=== PATIENT | female | born 2005 | race Caucasian/White ===

== ENCOUNTER 2024-11-30 13:09 | Emergency (ER) | payer OTHER, SELFPAY ==
[2024-11-30 13:17] VITALS: BP 138/95; PULSE 78; TEMP 36.7; O2SAT 98; BMI 36.0
[2024-11-30 13:27] VITALS: O2SAT 99
--- NOTE | 2024-11-30 13:51 | ED.GENADUL1 ---
HPI HPI - General Adult General Chief complaint: Extremity Problem, Nontraumatic Stated complaint: POST OP COMPLICATIONS Time Seen by Provider: 11/30/24 13:20 Source: patient Mode of arrival: walk-in History of Present Illness HPI narrative: pt had tonsillectomy 5 days ago at [facility] near [place]. She presents with throat pain - no relief with the liquid oxy that was prescribed. She is also taking oral tylenol. No fever or chills. No bleeding. Related Data Allergies Allergy/AdvReac Type Severity Reaction Status Date / Time latex Allergy Severe Rash Verified 11/30/24 13:22 Penicillins Allergy Severe Rash Verified 11/30/24 13:22 Opioid HPI Opioid Management Most Recent Opioid Data: No Data to Display PFSH PFSH Social History Little interest or pleasure in doing things: not at all Feeling down, depressed, or hopeless: not at all Exam Narrative Exam Narrative: Nurses notes and vital signs reviewed and patient is not hypoxic. afebrile General: Well-appearing and in no apparent distress. Skin: Warm, dry, no pallor noted. Head: Normocephalic, atraumatic. Neck: Supple, non-tender. No cervical lymphadenopathy Eye: Pupils are equal, round and EOMI. No scleral icterus. Ears, Nose, Mouth, and Throat: TM are clear, no nasal mucosal hypertrophy. Oral mucosa is moist, uvula is mid-line, no pharyngeal bleeding noted. There is normal healing process identified in the post tonsillectomy changes in the patient's pharynx. Cardiovascular: Regular Rate and Rhythm without murmur, gallop or rub. Respiratory: No accessory muscle use or respiratory distress. Lungs are clear to auscultation, no wheezing, rales or rhonchi Neurological: A&O x4. No cranial nerve dysfunction observed. No truncal ataxia. Moves all extremities. Sensation intact. Psychiatric: Cooperative and interactive. Normal mood and affect. Constitutional Vital Signs, click to edit/add: Last Vital Signs Temp 98.1 F 11/30/24 13:17 Pulse 78 11/30/24 13:17 Resp 18 11/30/24 13:17 BP 138/95 H 11/30/24 13:17 Pulse Ox 99 11/30/24 13:27 O2 Del Method Room Air 11/30/24 13:27 Course Vital Signs Vital signs: Vital Signs Temperature 98.1 F 11/30/24 13:17 Pulse Rate 78 11/30/24 13:17 Respiratory Rate 18 11/30/24 13:17 Blood Pressure 138/95 H 11/30/24 13:17 Pulse Oximetry 98 11/30/24 13:17 Oxygen Delivery Method Room Air 11/30/24 13:17 Temperature 98.1 F 11/30/24 13:17 Pulse Rate 78 11/30/24 13:17 Respiratory Rate 18 11/30/24 13:17 Blood Pressure 138/95 H 11/30/24 13:17 Pulse Oximetry 99 11/30/24 13:27 Oxygen Delivery Method Room Air 11/30/24 13:27 Medical Decision Making MDM Narrative Medical decision making narrative: Patient prescribed BMX solution -a mix of viscous lidocaine, Maalox and liquid Benadryl -to swallow every 8 hours as needed for throat pain. No bleeding at this time. She was instructed to call her ear nose and throat surgeon tomorrow to discuss her progress. If she develops bleeding, she is supposed to go immediately to [facility] [place] emergency department. Discharge Plan Discharge Chief Complaint: Extremity Problem, Nontraumatic Clinical Impression: Post-tonsillectomy pain Patient Disposition: Home, Self-Care Time of Disposition Decision: 13:47 Print Language: Ukrainian Instructions: Pain Management (ED), Tonsillectomy (DC) Additional Instructions: take Rx for BMX solution as written. Call your surgeon to schedule follow up. Go directly to [facility] [place] ER if bleeding develops. Referrals: Physician,Non-Staff, MD [Primary Care Provider] - 1 week
== END 2024-11-30 13:59 | disposition home or self-care (01) ==
PROVIDERS: Emergency Provider Emergency Medicine
DX: G89.18 Other acute postprocedural pain (principal); R07.0 Pain in throat; Z98.890 Other specified postprocedural states
CPT/HCPCS: 99283